=== PATIENT | male | born 1975 | race Caucasian/White ===

== ENCOUNTER 2016-09-19 03:51 | Inpatient (IN) | payer MEDICARE ==
[~2016-09-19] VITALS: Ht 180.3 cm; Wt 77.7 kg
[~2016-09-19 03:51] MED LIST: CYMBALTA60 MG PO; LYRICA150 MG PO; PRADAXA150 MG PO; STIOLOTO RESPIMAT INH
[2016-09-19 04:26] LABS: BASOPHILS 0.5 % (0.0-2.0); HEMATOCRIT 45.7 % (42.0-54.0); HEMOGLOBIN 15.5 g/dL (13.5-17.5); IMMATURE GRANULOCYTES 0.2 % (0-5); LYMPHOCYTES 34.7 % (15-50); MCH 31.7 pg (26.0-34.0); MCHC 33.9 g/dL (31.0-37.0); MCV 93.5 fL (80.0-100.0); MONOCYTES 7.3 % (2-11); NEUTROPHILS 54.3 % (40-80); PLATELET COUNT 182 10x3/uL (130-400); RBC 4.89 10x6/uL (4.20-6.10); RDW 13.7 % (11.5-14.5)
[2016-09-19 04:36] LABS: ALBUMIN 4.4 g/dL (3.4-5.0); ALKALINE PHOSPHATASE 55 U/L (46-116); ALT (SGPT) 27 U/L (10-68); BILIRUBIN - TOTAL 0.36 mg/dL (0.2-1.3); CALC OSMOLALITY 280 mosm/kg (275-300); CALCIUM 8.9 mg/dL (8.5-10.1); CARBON DIOXIDE 28.1 mmol/L (21.0-32.0); CHLORIDE - SERUM 105 mmol/L (98-107); CREATININE - SERUM 0.9 mg/dL (0.6-1.3); GLUCOSE 114 mg/dL (74-106); POTASSIUM - SERUM 3.6 mmol/L (3.5-5.1); PROTEIN - SERUM 7.4 g/dL (6.4-8.2); SODIUM 141 mmol/L (136-145); UREA NITROGEN 10 mg/dL (7-18); eGFR NON AFRICAN AMERICAN > 90 mL/min (90-120)
[2016-09-19 04:45] LABS: CKMB 0.3 U/L (0.0-3.6); CREATINE KINASE 77 UL (21-232)
[2016-09-19 04:47] LABS: TROPONIN-I < 0.017 ng/mL (0.000-0.060)
--- NOTE | 2016-09-19 11:30 | NUR ---
PT REC'D ON FLOOR FROM ER. PT IS ALERT AND ORIENTED. WILL BEGIN ADMISSION WORK-UP AND START WITH ORDERS.
[2016-09-19] MEDS ORDERED: ELIQUIS5 MG PO (11:33)
[2016-09-19 11:35] VITALS: BP 124/78; Ht 180.3 cm; Wt 77.7 kg
[2016-09-19 11:43] VITALS: BP 124/78
--- NOTE | 2016-09-19 13:19 | NUR ---
PT TALKING WITH AND TRISTA HADLEY APN AT BEDSIDE. NO CURRENT NEEDS.
[2016-09-19 14:48] VITALS: BP 105/68
--- NOTE | 2016-09-19 17:53 | NUR ---
REPORT GIVEN TO WOMENS NURSE STACIE. PT VERBALIZED UNDERSTANDING OF TRANSFER. PRN PAIN MEDICATION GIVEN. TELEMETRY APPLIED. NO FURTHER NEEDS NOTED AT THIS TIME. WILL TRANSFER PT AT THIS TIME.
--- NOTE | 2016-09-19 18:17 | NUR ---
MEENU RECEIVED TO ROOM 1218. HE IS AWAKE AND ALERT, ABLE TO MAKE HIS NEEDS KNOWS. FEMALE VISITOR AT THE BEDSIDE. CALL LIGHT IS WITHIN REACH. SL IS WITHOUT REDNESS OR SIGNS OF INFILTRATION. TELEMETRY IS RECORDING.
[2016-09-19 19:30] VITALS: BP 110/68
--- NOTE | 2016-09-19 19:40 | NUR ---
ASSESSMENT PER FLOW SHEET, VS OBTAINED PER KENDY SCHULZ RN, SALINE LOCK IN LEFT AC INTACT WITH NO REDNESS OR EDEMA, PT REPORTS FLATUS, 2 BM'S TODAY, AND VOIDING BY SELF WITH NO DIFFCULTY, PT RATES PAIN 5/10, INFORMED PT PAIN MED NOT DUE AT THIS TIME, TALKED TO PT ABOUT FALL RISK, PT REFUSES BED ALARM, EXPLAINED TO PT WHY IT WAS USED, CONTINUES TO REFUSE BED ALARM, REQUESTS TO SIGN WAIVER, PT INST ON NPO AFTER MIDNIGHT, VERBALIZES UNDERSTANDING, PT DENIES NEEDS AT THIS TIME
--- NOTE | 2016-09-19 20:05 | NUR ---
PT WATCHING TV, YELLOW BAND PLACED ON ARM, YELLOW STAR TO DOOR, BLUE SKID SOCKS PROVIDED, PT SIGNS BED ALARM WAIVER, PT DENIES NEEDS AT THIS TIME
--- NOTE | 2016-09-19 21:28 | NUR ---
PT TALKING ON CELL PHONE, ADM 2100 MEDS AND PAIN MED PO PER MD ORDERS WITH FRESH H20, SEE EMAR, PT DENIES FURTHER NEEDS
--- NOTE | 2016-09-19 22:34 | NUR ---
PT RESTING IN BED, GETTING READY TO TRY AND SLEEP, DENIES NEEDS AT THIS TIME
--- NOTE | 2016-09-19 23:25 | NUR ---
HEALTH INFORMATION ADMINISTRATOR NOTIFIED OF NEW ORDER FOR MAXIPIME
[2016-09-20] VITALS (10 sets, daily range): BP systolic 87–112; BP diastolic 45–69
--- NOTE | 2016-09-20 00:30 | NUR ---
PT AWAKE, AROUSES TO OPENING OF DOOR, VS OBTAINED, REQUESTS PAIN MED, INFORMED PT THAT IT WAS NOT TIME FOR IT, PT VERBALIZES UNDERSTANDING, DENIES FURTHER NEEDS AT THIS TIME
--- NOTE | 2016-09-20 02:00 | NUR ---
PT AWAKE, PT REQUESTS PAIN MED, EXPLAINED TO PT THAT IT WAS NOT DUE YET AND THAT I HAD ADM IT TOO SOON, PAIN MED IS Q6H PRN, PT VERY ADAMENT ABOUT WANTING ME TO CONTACT THE DOCTOR, INFORMED PT THAT I WILL PASS ON TO DAY SHIFT ABOUT TALKING TO THE DOCTOR, PT STATES "OH, DON'T WORRY, I'LL GET IT CHANGED, I KNOW THERE IS A DOCTOR ON STAFF HERE, I SPENT [address] [facility], AND THEY WOULD JUST CALL DOWN THERE TO THEM", EXPLAINED TO PT THAT IT ISN'T LIKE THAT HERE, THAT I HAVE TO CONTACT THE DOCTOR SPEECH CLINICIAN AND THAT I WAS GIVEN REPORT THAT THE MED IS TO STAY THE SAME, PT PROCEEDED TO GELL ME TO CONTACT THE ER DOCTOR, I INFORMED HIM THAT IS NOT WHO I AM TO CONTACT, INFORMED PT THAT I WILL ADM THE PAIN MED WHEN DUE, PT VERBALIZES UNDESTANDING
--- NOTE | 2016-09-20 02:11 | NUR ---
PT AMB TO DRIVER ENGINEER, WANTS TO SEE HIS CHART, SALLIE BERNAL RN AT DRIVER ENGINEER ALSO, THIS RN AND SALLIE BERNAL RN BOTH INFORMED PT THAT THE PAIN MED WAS EVERY 6 HOURS, HE PROCEEDED TO SAY THAT THE DOCTOR AND THE OTHER NURSE TOLD HIM HE COULD HAVE IT EVERY 4 HOURS, PT SHOWN WHEN AND WHO WROTE THE MED ORDER, PT STATES "WELL, I JUST DON'T FEEL GOOD", PT BACK TO ROOM
--- NOTE | 2016-09-20 02:37 | NUR ---
PT REPORTS TO RN THAT HE HAS LYRICA THAT HE TAKES AT HOME. EXPRESSES FRUSTRATION THAT HE CAN'T GET NORCO AT THIS TIME, STATING HE WAS TOLD BY HIS MD THAT HE COULD GET IT Q 4 HRS PRN. ORDER DISCUSSED WITH PT, CONT TO EXPRESS FRUSTRATION AND BEGAN CURSING AND STATING THAT THE STAFF HAD TREATED HIM BADLY SINCE HE HAD BEEN HERE AND HAD BEEN DENIED PAIN MEDICATION. RN DISCUSSED GIVING 0900 LYRICA AND THAT NORCO COULD BE GIVEN 30 MINUTES EARLY BUT NO MORE. VERBALIZED UNDERSTANDING. RN OFFERED FOR HS TO COME SPEAK WITH HIM, PT DENIED NEED FOR HS TO COME AT THIS TIME. RATES PAIN 9/10 AT THIS. PT AGREED TO TAKE 0900 LYRICA AT THIS TIME.
--- NOTE | 2016-09-20 02:58 | NUR ---
ADM NORCO PO PER MD ORDERS, SEE EMAR, WITH A SMALL SIP OF H20, SALLIE BERNAL RN IN ROOM AT THIS TIME
--- NOTE | 2016-09-20 04:00 | NUR ---
PT AWAKE, ANTIBIOTIC AND FLUSH FINISHED INFUSING, IV CONVERTED TO SALINE LOCK, PT REPORTS PAIN IS BETTER, RATES 5/10, STATES "I'M SORRY FOR ACTING THE WAY I DID", PT THANKS ME FOR TAKING GOOD CARE OF HIM, PT DENIES FURTHER NEEDS AT THIS TIME
--- NOTE | 2016-09-20 06:20 | NUR ---
PT AWAKE, ADM PROTONIX PO PER MD ORDERS WITH SMALL SIP OF H20, PT DENIES NEEDS AT THIS TIME
[2016-09-20 06:24] LABS: BASOPHILS 0.5 % (0.0-2.0); EOSINOPHILS 3.4 % (0-7); HEMATOCRIT 41.2 % (42.0-54.0); HEMOGLOBIN 13.6 g/dL (13.5-17.5); IMMATURE GRANULOCYTES 0.2 % (0-5); MCH 30.6 pg (26.0-34.0); MCV 92.8 fL (80.0-100.0); MEAN PLATELET VOLUME 9.2 fL (7.4-10.4); NEUTROPHILS 55.9 % (40-80); PLATELET COUNT 159 10x3/uL (130-400); RBC 4.44 10x6/uL (4.20-6.10); RDW 13.5 % (11.5-14.5); WBC 6.1 10x3/uL (4.8-10.8)
[2016-09-20 06:57] LABS: ALBUMIN 3.5 g/dL (3.4-5.0); ALKALINE PHOSPHATASE 45 U/L (46-116); ALT (SGPT) 25 U/L (10-68); CALC OSMOLALITY 276 mosm/kg (275-300); CALCIUM 8.4 mg/dL (8.5-10.1); CARBON DIOXIDE 24.2 mmol/L (21.0-32.0); CHLORIDE - SERUM 107 mmol/L (98-107); CREATININE - SERUM 0.8 mg/dL (0.6-1.3); GLUCOSE 96 mg/dL (74-106); POTASSIUM - SERUM 3.9 mmol/L (3.5-5.1); PROTEIN - SERUM 5.9 g/dL (6.4-8.2); SODIUM 140 mmol/L (136-145); eGFR NON AFRICAN AMERICAN > 90 mL/min (90-120)
[2016-09-20 06:58] LABS: UREA NITROGEN 7 mg/dL (7-18)
[2016-09-20 07:00] LABS: APTT 30.1 SECONDS (22.8-39.4); INR 1.03 (0.85-1.17); PROTIME 13.3 SECONDS (11.6-15.0)
--- NOTE | 2016-09-20 07:00 | NUR ---
SHIFT REPORT TO DAY SHIFT
--- NOTE | 2016-09-20 07:30 | NUR ---
PT WAS RECEIVED THIS AM LYING IN BED. HE OFFERS NO COMPLAINTS. HE STATES THAT HE IS GOING FOR A BRONCHOSCOPY TODAY. HE STATES THAT HE IS NOT HAVING ANY PAIN AT THIS TIME. BED IS LOW, SIDE RAILS UP X 2 AND CALLL LIGHT IN REACH. GEN- AWAKE AND ALERT. LUNGS- CLEAR. HEART- RRR. ABD-SOFT, NONTENDER. EXT- NO EDEMA. SALINE LOCK NOTED R AC WHICH IS PATENT. VSS. HE RECEIVES UPDRAFTS.
--- NOTE | 2016-09-20 08:50 | NUR ---
PT IS RESTING IN BED. RESPIRATORY THERAPY IS HERE TO GIVE HIS UPDRAFTS.
--- NOTE | 2016-09-20 09:20 | NUR ---
PT REQUEST TO HAVE A PAIN PILL. STATES HIS PAIN IS A 7 AND IS IN CHEST. NORCO 5/325 GIVEN.
--- NOTE | 2016-09-20 10:46 | NUR ---
PT'S PREOP MEDS GIVEN. MORPHINE 4MG IV AND PHENERGAN 12.5 MG IV GIVEN. FLUSHED WITH NS. PT TRANSPORTED TO HAVE BRONCHOSCOPY
--- NOTE | 2016-09-20 12:00 | NUR ---
PT WAS RECEIVED FROM HAVING BRONCHOSCOPY DONE. THEY HAD TO ABORT THE PROCEDURE DUE TO PATIENT GETTING UPSET AND COMBATIVE. PT IS SLEEPING BUT EASILY AROUSED.
--- NOTE | 2016-09-20 13:28 | NUR ---
Is the patient Alert and Oriented? Yes 0 * How many steps to enter\exit or inside your home? 3 0 * PCP SERGEY MARIE 0 * [facility] [address] [facility] * Preadmission Environment Home with Family 0 * ADLs Independent 0 * Equipment None 0 * List name and contact numbers for known caregivers / representatives who currently or will assist patient after discharge: MOTHER: CECELIA [phone] 0 * Community resources currently utilized None 0 * Additional services required to return to the preadmission environment? No 0 * Can the patient safely return to the preadmission environment? Yes 0 * Has this patient been hospitalized within the prior 30 days at any hospital? No PATIENT IS AWAKE AND ALERT. HE STATES HIS MOTHER, CECELIA, LIVES WITH HIM. HE STATES SHE WILL BE AVAILABLE TO DRIVE HIM HOME AT DISCHARGE. PATIENT STATES HIS PCP IS SERGEY MARIE. PATIENT GETS HIS MEDS FROM [facility] ON . HE DENIES USE OF ANY EQUIPMENT. HE DENIES EVER HAVING HOME HEALTH. PATIENT STATES THERE ARE 3 STEPS TO ENTER HIS HOME. NO DISCHARGE NEEDS AT THIS TIME.
--- NOTE | 2016-09-20 13:53 | NUR ---
PT REQUEST SOMETHING TO EAT. I TOLD HIM HE COULD HAVE CLEAR LIQUIDS. GAVE HIM SOME JELLO. HE STATES THAT HE ATE A COUPLE OF SHRIMP BEFORE KNOWING.
--- NOTE | 2016-09-20 16:38 | NUR ---
PT IS BACK TO ROOM FROM WALKING. OFFERS NO COMPLAINTS. WALKED WITH HIS MOTHER.
--- NOTE | 2016-09-20 18:00 | NUR ---
PT'S MAXIPIME WAS HUNG WITH NS. PT IS SITTING UP IN BE. PAIN IS NOW ABOUT A 4/10. HE IS EATING HIS DINNER. HIS BED IS LOW, SIDE RAILS UP X 2 AND CALL LIGHT IN REACH. SALINE LOCK LEFT AC IS D'CD. TIP INTACT. IV LEFT HAND IS PATENT.
--- NOTE | 2016-09-20 18:11 | NUR ---
PT IS UP TO BATHROOM. SHE VOIDED. SHE AMBULATED WITHOUT DIFFICULTY. PT DOES NOT SEEM TO WANT TO EAT HER DINNER. OFFERED HER SOMETHING ELSE. SHE DOES NOT WANT. BED IS LOW. SIDE RAILS UP X 2 AND CALL LIGHT IN REACH.
--- NOTE | 2016-09-20 19:20 | NUR ---
AWAKE DURING INITIAL ROUNDS SITTING ON SIDE OF THE BED. INTRODUCED SELF. V/S TAKEN. ASSESSMENT DONE. STATUS Dx: SYNCOPE. SALINE LOCK TO R HAND FOR IV ANTIBIOTIC. ON TELEMETRY--SINUS RICHARD.
--- NOTE | 2016-09-20 19:30 | NUR ---
SANDWICH BOX PROVIDED. STATES HE DID NOT GET A SUPPER TRAY.
--- NOTE | 2016-09-20 19:40 | NUR ---
AMBULATING IN THE BREWER. OFF THE UNIT.
--- NOTE | 2016-09-20 19:59 | NUR ---
BACK IN THE ROOM WITH FEMALE FRIEND.
--- NOTE | 2016-09-20 20:36 | NUR ---
RT HERE TO GIVE BREATHING TREATMENT.
--- NOTE | 2016-09-20 20:50 | NUR ---
HS MEDS GIVEN. PAIN LEVEL 7/10 FROM HEAD/NECK/LEGS. NORCO 5/325 1tab PO GIVEN FOR PAIN CONTROL. SEE E-MAR.
[2016-09-21 00:34] VITALS: BP 99/62
--- NOTE | 2016-09-21 00:34 | NUR ---
V/S RECHECKED. PULSE 52/min.
--- NOTE | 2016-09-21 01:10 | NUR ---
PAIN LEVEL "7"/10. NORCO 5/325 1tab PO GIVEN FOR PAIN MANAGEMENT. CEFEPIME 1GM IVPB ANTIBIOTIC INFUSING. SEE E-MAR. NO ADVERSE REACTION NOTED.
--- NOTE | 2016-09-21 01:45 | NUR ---
ANTIBIOTIC INFUSION COMPLETE. PIV SL AT THIS TIME. PT DENIES PAIN OR FURTHER NEEDS.
--- NOTE | 2016-09-21 03:20 | NUR ---
EYES CLOSED. LEFT UNDISTURBED.
--- NOTE | 2016-09-21 04:50 | NUR ---
EMPLOYMENT AND CLAIMS AIDE HERE TO DRAW AM LAB.
--- NOTE | 2016-09-21 05:45 | NUR ---
V/S SATBLE. PAIN LEVEL "6"/10 (HEAD/NECK/LEGS) NORCO 5/325 1tab PO GIVEN FOR PAIN CONTROL. SLEPT FAIRLY WELL DURING THE NIGHT. CONTINUING PLAN OF CARE.
[2016-09-21 05:48] VITALS: BP 103/72
[2016-09-21 06:12] LABS: BASOPHILS 0.6 % (0.0-2.0); EOSINOPHILS 2.9 % (0-7); HEMATOCRIT 40.2 % (42.0-54.0); HEMOGLOBIN 13.3 g/dL (13.5-17.5); IMMATURE GRANULOCYTES 0.2 % (0-5); MCH 30.9 pg (26.0-34.0); MCHC 33.1 g/dL (31.0-37.0); MCV 93.5 fL (80.0-100.0); MEAN PLATELET VOLUME 9.4 fL (7.4-10.4); NEUTROPHILS 56.3 % (40-80); PLATELET COUNT 179 10x3/uL (130-400); RDW 13.7 % (11.5-14.5); WBC 6.6 10x3/uL (4.8-10.8)
--- NOTE | 2016-09-21 07:30 | NUR ---
MEENU IS AWAKE AND ALERT. SITTING UPRIGHT IN BED. UNPRODUCTIVE COUGH NOTED. NO NEEDS VOICED. MONITORING.
[2016-09-21 07:45] VITALS: BP 113/71
[2016-09-21 08:00] VITALS: BP 113/71
--- NOTE | 2016-09-21 08:40 | NUR ---
MEENU HAS TAKEN HIS MORNING MEDICATIONS. DISCUSSED THE TIME SPAN FOR NORCO AVAILABILITY AT [facility]. HE STATES UNDERSTANDING OF A MISUNDERSTANDING AND PLANS TO CLARIFY THIS WITH DR. BLUE WHEN HE SEES HIM TODAY. HES LUNGS ARE CLEAR AND HE IS WITHOUT A MURMUR. TELEMETRY CONFIRMS A SR 87. FRESH CUP OF COFFEE PROVIDED. HE IS UNCLEAR OF THE PLAN FOR THE DAY. DISCUSSED ANTIBIOTICA AND AWAIT CLARIFICATION FROM .
--- NOTE | 2016-09-21 08:40 | NUR ---
AM rounds, pt again asking about pain medication and wanting it every 4 hours instead of 6 hours. Explained to pt yesterday and again today that it was initially ordered every 6 hours. Pt is again verbalizing that someone changed it. I asked pt if he needed pain medication every 4 hours and he stated yes. Sukumar and Bertha explained we could speak to the MD on rounds.
--- NOTE | 2016-09-21 08:41 | CN ---
PATIENT NAME:CHIKI MARTINI MEDICAL RECORD: [id number] : 75 LOCATION:[facility] D.1218 ADMIT DATE: 09/20/16 ACCOUNT: [id number] CONSULTING PHYSICIAN: SATHYA ORTIZ MD REFERRING PHYSICIAN: CODI NIETO MD DATE OF CONSULTATION: 09/19/2016 DIAGNOSES: 1. Recurrent pulmonary emboli. 2. Eliquis anticoagulation. 3. Syncope. HISTORY OF PRESENT ILLNESS: This is a gentleman, who has had 16 pulmonary emboli. He is followed by Dr. Fay, pulmonary here. He is followed by Dr. Blanco, cardiology in ____. He saw Dr. King yesterday, had an echocardiogram and Dr. Blanco said that his pressures in his lung were high. He called Dr. Fay. He was set to see Dr. Fay. He went home, had recurrent chest pain and had an episode of syncope. He is on telemetry here, he has not had any dysrhythmia. He has had a history of dysrhythmia. He is on no AV-blocking medication at this time. He is to see a doctor in [place], [place]. 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 PHYSICAL EXAMINATION: GENERAL APPEARANCE: Well-nourished, well-developed, appears stated age. Level of distress, comfortable. PSYCHIATRIC: Mental status, alert, normal affect. Orientation, oriented to time, place and person. EYES: Lids and conjunctiva, noninjected. No discharge, no pallor. ENT: Lips, teeth, gums, normal dentition. Oropharynx, no cyanosis, no pallor. NECK: Carotid arteries, bilateral normal upstroke, no bruits, no thrills. JUGULAR VEINS: No jugular venous pressure or distention. CERVICAL LYMPH NODES: Nontender, nonenlarged. THYROID: Not enlarged. Nontender. No nodules. LUNGS: Respiratory effort, unlabored. CHEST: Normal curvature. No thoracic deformity. No chest wall tenderness. Percussion, resonant. Auscultation, clear. No wheezes, no rales, no rhonchi. CARDIOVASCULAR: Precordial exam, nondisplaced. No heaves or pericardial thrills. Rate and rhythm, regular. Heart sounds, normal S1, normal S2. No S3, no gallop, no rub. Systolic murmur, not heard. Diastolic murmur, not heard. EXTREMITIES: No cyanosis, no edema. Peripheral pulses, full and equal in all extremities, except as noted. No bruits appreciated. ABDOMEN: Soft, nondistended. Normal aorta. No bruit. Nontender. No masses. Liver, nontender, no hepatomegaly. Spleen, nontender, no splenomegaly. MUSCULOSKELETAL: No joint tenderness. No joint swelling. No erythema. NEUROLOGICAL: Normal gait, normal strength, normal tone. SKIN: Warm and dry. EXTREMITIES: No cyanosis, no edema. Peripheral pulses, full and equal in all extremities time. sneezing. REVIEW OF SYSTEMS: The patient reports easy bruising but reports no swollen glands. The patient reports no fever, no night sweats, no significant weight gain, no significant weight loss. No significant exercise tolerance. The patient reports no dry eyes, no irritation, no vision change. Patient reports CONSULT REPORT [id number] CHIKI MARTINI no difficulty hearing and no ear pain. Patient reports no frequent nose bleeds or nose and sinus problems. Patient reports on arm pain on exertion. No shortness of breath while lying down. No history of heart murmur. Patient reports no cough, no wheezing or coughing up blood. Patient reports no abdominal pain, no vomiting. Normal appetite. No diarrhea and not vomiting blood. No nausea and no constipation. Patient reports no incontinence. No difficulty urinating. No hematuria. No increased frequency. Patient reports no muscle aches. No weakness, no arthralgias, no back pain. No swelling of the extremities. Patient reports no abnormal mole, no jaundice, no rashes. Reports no loss of consciousness. No weakness and no numbness. No seizures, dizziness, or headaches. The patient reports no depression, no sleep disturbance, feeling safe in a relationship and no alcohol abuse. Patient reports on fatigue. Reports no runny nose or sinus pressure. No itching, no hives, and no frequent sneezing. OVERALL IMPRESSION: Palpitations. We will continue to monitor on telemetry, see if he has any dysrhythmia, treat dysrhythmias accordingly; however, at this time, I think the chest pain he has may be recurrent pulmonary emboli. Again, D-dimer is elevated. His troponin is normal. Most likely he does have some degree of pulmonary hypertension from the recurrent pulmonary emboli. At this time, no other discrete cardiac workup and treatment is necessary. TRANSINT:[id number] Voice Confirmation ID: [id number] DOCUMENT ID: [id number] SATHYA ORTIZ MD at 0841 CC: [id number] DICTATION DATE: 09/19/16 1313 CERTIFIED NURSING ATTENDANT: 09/19/16 1924 ADM IN [place] [id number] [place] [address]
--- NOTE | 2016-09-21 09:12 | NUR ---
PRODUCTIVE COUGH NOTED.
--- NOTE | 2016-09-21 09:58 | NUR ---
PATIENT GIVEN A CUP AND INSTRUCTIONS TO COLLECT ANY PRODUCTION THAT HE HAS WITH COUGH FOR OBSERVATION. HE VOICES UNDERSTANDING.
--- NOTE | 2016-09-21 10:43 | NUR ---
PATIENT SITTING UP ON THE BEDSIDE READING HIS NEWSPAPER.
--- NOTE | 2016-09-21 11:56 | NUR ---
MEENU GIVEN NORCO FOR C/O GENERALIZED PAIN, ACHING IN HIS KNEES, BACK, HIPS, HEAD AND NECK. HE TELLS ME THAT HE HAS BEEN PRETTY ROUGH ON HIS BODY, "BEEN NEAT UP ALL MY LIFE." HE TELLS ME OF 2 HERNIA SURGERIES AND A HIP REPLACEMENT. IV ABT BEGUN TO THE LEFT HAND IV INSERTION SITE THAT IS WITHOUT REDNESS OR SWELLING. LUNCH SERVED I WAS IN THERE. NO NEEDS NOTED.
--- NOTE | 2016-09-21 14:22 | NUR ---
PATIENT UP IN TO THE SHOWER. LINENS CHANGED. IV TO NEHEMIAS LEFT HAND COVERED.
[2016-09-21] MEDS ORDERED: ELIQUIS2.5 MG PO (15:57)
--- NOTE | 2016-09-21 17:10 | NUR ---
MEENU UNDERSTANDS THAT HE HAS BEEN RELEASED TO GO HOME. DISCUSSED HIS ELEQUIS DOSING. HE UNDERSTANDS THAT HE IS TO TAKE 2.5MG TWICE DAILY. CALLED TO PHARMACY ([facility]) WHO CONFIRMED THAT HE CAN CUT HIS 5MG TABS IN 1. HE VOICED UNDERSTANDING. I ENCOURAGED HIM TO GET A SECOND OPINION FROM HIS PHARMACIST IF HE STILL HAD RESERVATIONS. HIS MOTHER HAS GONE HOME AND IS HIS TRANSPORTAION. SHE WILL RETURN FOR HIM. HE REQUESTS A PAIN PILL [PRIOR TO LEAVING.
[2016-09-21] MEDS ORDERED: OMNICEF300 MG PO (17:39)
--- NOTE | 2016-09-21 19:04 | NUR ---
DISCHARGE INSTRUCTIONS DISCUSSED, INCLUDING NEED FOR MAKING A FOLLOW UP APPT.
--- NOTE | 2016-09-21 19:05 | NUR ---
WHEELED OUT TO WAITING VEHICLE.
== END 2016-09-21 19:05 | disposition home or self-care (01) | DRG 204 ==
LOC: D.ER 03:51 → D.M2 10:26 → OBSVTIME 10:26 → D.M2 10:26 → D.WS 10:26
PROVIDERS: Family Medicine; Internal Medicine Pulmonary Disease; ADMIT Family Medicine
PROC: 0BJ08ZZ Inspection of Tracheobronchial Tree, Via Natural or Artificial Opening Endoscopic (ICD-10-PCS; principal; 2016-09-20 10:54)
DX: R04.2 Hemoptysis (principal); R07.9 Chest pain, unspecified; R55 Syncope and collapse; Z79.01 Long term (current) use of anticoagulants; M79.7 Fibromyalgia; J44.9 Chronic obstructive pulmonary disease, unspecified; E78.5 Hyperlipidemia, unspecified; K21.9 Gastro-esophageal reflux disease without esophagitis; J31.0 Chronic rhinitis; M19.90 Unspecified osteoarthritis, unspecified site; Z86.711 Personal history of pulmonary embolism; Z86.718 Personal history of other venous thrombosis and embolism; Z87.891 Personal history of nicotine dependence

== ENCOUNTER 2017-01-20 20:33 | Emergency (ER) | payer MEDICARE ==
[2016-09-19 11:35] VITALS: BMI 23.9
[~2017-01-20 20:33] MED LIST changes: +ELIQUIS2.5 MG PO; +ELIQUIS5 MG PO; +OMNICEF300 MG PO
[2017-01-20 21:05] LABS: BASOPHILS 0.6 % (0-2); EOSINOPHILS 2.1 % (0-7); HEMOGLOBIN 14.8 g/dL (13.5-17.5); IMMATURE GRANULOCYTES 0.1 % (0-5); LYMPHOCYTES 26.1 % (15-50); MCH 31.8 pg (26.0-34.0); MCHC 34.4 g/dL (31.0-37.0); MCV 92.3 fL (80.0-100.0); MEAN PLATELET VOLUME 9.2 fL (7.4-10.4); MONOCYTES 4.4 % (2-11); NEUTROPHILS 66.7 % (40-80); PLATELET COUNT 200 10x3/uL (130-400); RBC 4.66 10x6/uL (4.20-6.10); RDW 13.2 % (11.5-14.5); WBC 9.1 10x3/uL (4.8-10.8)
[2017-01-20 21:15] LABS: APTT 32.8 SECONDS (22.8-39.4); INR 0.93 (0.85-1.17); PROTIME 12.3 SECONDS (11.6-15.0)
[2017-01-20 21:16] LABS: D-DIMER-QUANTITATIVE 0.59 ug/mLFEU (0.20-0.54)
[2017-01-20 21:20] LABS: ALBUMIN 4.2 g/dL (3.4-5.0); ALKALINE PHOSPHATASE 57 U/L (46-116); ALT (SGPT) 17 U/L (10-68); BILIRUBIN - TOTAL 0.38 mg/dL (0.2-1.3); CALC OSMOLALITY 277 mosm/kg (275-300); CARBON DIOXIDE 29.6 mmol/L (21.0-32.0); CHLORIDE - SERUM 102 mmol/L (98-107); CREATININE - SERUM 0.9 mg/dL (0.6-1.3); GLUCOSE 80 mg/dL (74-106); POTASSIUM - SERUM 3.9 mmol/L (3.5-5.1); PROTEIN - SERUM 7.4 g/dL (6.4-8.2); SODIUM 140 mmol/L (136-145); UREA NITROGEN 12 mg/dL (7-18); eGFR NON AFRICAN AMERICAN > 90 mL/min (90-120)
[2017-01-20 21:32] LABS: CHOLESTEROL, TOTAL 146 mg/dL (0-200); CKMB 0.4 U/L (0.0-3.6); CREATINE KINASE 109 UL (21-232); HDL CHOLESTEROL 29 mg/dL (32-96); LDL CHOLESTEROL 81 mg/dL (0-100); LDL-HDL RATIO 2.8 ratio (1.5-3.5); TRIGLYCERIDE 184 mg/dL (30-200); TROPONIN-I < 0.017 ng/mL (0.000-0.060)
== END 2017-01-20 23:45 | disposition home or self-care (01) ==
LOC: D.ER 20:33
PROVIDERS: Emergency Medicine
DX: R07.9 Chest pain, unspecified (principal); Z91.14 Patient's other noncompliance with medication regimen; R10.9 Unspecified abdominal pain; R11.0 Nausea; R06.00 Dyspnea, unspecified; R60.9 Edema, unspecified; R53.1 Weakness; F17.200 Nicotine dependence, unspecified, uncomplicated; F41.9 Anxiety disorder, unspecified

== ENCOUNTER → 2017-08-17 07:53 | Outpatient (CLI) | payer MEDICARE ==
[2016-09-19 11:35] VITALS: BMI 23.9
[~2017-08-17 07:53] MED LIST changes: +VENTOLIN HFA18 GM INH; +ZPAK PO
[2017-08-17 09:25] LABS: CREATININE - SERUM 0.8 mg/dL (0.6-1.3)
== END | disposition home or self-care (01) ==
LOC: D.RT 07:53
PROVIDERS: Internal Medicine Pulmonary Disease
DX: I26.99 Other pulmonary embolism without acute cor pulmonale (principal)

== ENCOUNTER 2017-08-19 19:03 | Inpatient (IN) | payer MEDICARE ==
[~2017-08-19] VITALS: Ht 180.3 cm; Wt 74.8 kg
[~2017-08-19 19:03] MED LIST changes: -VENTOLIN HFA18 GM INH; -ZPAK PO
[2017-08-19 19:29] LABS: BASOPHILS 0.4 % (0-2); EOSINOPHILS 1.8 % (0-7); HEMATOCRIT 41.1 % (42.0-54.0); IMMATURE GRANULOCYTES 0.2 % (0-5); LYMPHOCYTES 28.3 % (15-50); MCH 31.3 pg (26.0-34.0); MCHC 34.1 g/dL (31.0-37.0); MCV 91.7 fL (80.0-100.0); MEAN PLATELET VOLUME 8.8 fL (7.4-10.4); MONOCYTES 7.3 % (2-11); PLATELET COUNT 187 10x3/uL (130-400); RBC 4.48 10x6/uL (4.20-6.10); RDW 13.1 % (11.5-14.5); WBC 8.3 10x3/uL (4.8-10.8)
[2017-08-19 19:48] LABS: INR 0.96 (0.85-1.17); PROTIME 12.4 SECONDS (11.6-15.0)
[2017-08-19 19:49] LABS: ALBUMIN 3.9 g/dL (3.4-5.0); ALKALINE PHOSPHATASE 60 U/L (46-116); ALT (SGPT) 32 U/L (10-68); APTT 28.4 SECONDS (22.8-39.4); BILIRUBIN - TOTAL 0.39 mg/dL (0.2-1.3); CALC OSMOLALITY 277 mosm/kg (275-300); CALCIUM 9.2 mg/dL (8.5-10.1); CARBON DIOXIDE 26.2 mmol/L (21.0-32.0); CHLORIDE - SERUM 104 mmol/L (98-107); CREATININE - SERUM 0.9 mg/dL (0.6-1.3); GLUCOSE 110 mg/dL (74-106); POTASSIUM - SERUM 3.8 mmol/L (3.5-5.1); PROTEIN - SERUM 6.9 g/dL (6.4-8.2); SODIUM 139 mmol/L (136-145); UREA NITROGEN 11 mg/dL (7-18); eGFR NON AFRICAN AMERICAN > 90 mL/min (90-120)
[2017-08-19 19:50] LABS: D-DIMER-QUANTITATIVE < 0.27 ug/mLFEU (0.20-0.54)
[2017-08-19 20:00] LABS: CREATINE KINASE 316 UL (21-232)
[2017-08-19 20:05] LABS: TROPONIN-I < 0.017 ng/mL (0.000-0.060)
[2017-08-19] MEDS ORDERED: ELIQUIS5 MG PO (22:54)
[2017-08-19] MEDS ORDERED: VENTOLIN HFA18 GM INH (22:56)
[2017-08-19 23:48] VITALS: BP 92/65; BMI 23.0
[2017-08-20 00:40] VITALS: BP 92/43
[2017-08-20 04:57] LABS: BASOPHILS 0.1 % (0-2); EOSINOPHILS 0.1 % (0-7); HEMATOCRIT 42.1 % (42.0-54.0); HEMOGLOBIN 14.2 g/dL (13.5-17.5); IMMATURE GRANULOCYTES 0.2 % (0-5); LYMPHOCYTES 6.4 % (15-50); MCH 31.1 pg (26.0-34.0); MCHC 33.7 g/dL (31.0-37.0); MCV 92.1 fL (80.0-100.0); MEAN PLATELET VOLUME 9.3 fL (7.4-10.4); MONOCYTES 0.4 % (2-11); NEUTROPHILS 92.8 % (40-80); PLATELET COUNT 192 10x3/uL (130-400); RBC 4.57 10x6/uL (4.20-6.10); WBC 9.1 10x3/uL (4.8-10.8)
[2017-08-20 05:19] LABS: ALBUMIN 3.8 g/dL (3.4-5.0); ALKALINE PHOSPHATASE 56 U/L (46-116); ALT (SGPT) 29 U/L (10-68); BILIRUBIN - TOTAL 0.39 mg/dL (0.2-1.3); CALCIUM 8.8 mg/dL (8.5-10.1); CARBON DIOXIDE 24.8 mmol/L (21.0-32.0); CHLORIDE - SERUM 105 mmol/L (98-107); CREATININE - SERUM 0.8 mg/dL (0.6-1.3); PROTEIN - SERUM 6.9 g/dL (6.4-8.2); SODIUM 139 mmol/L (136-145); UREA NITROGEN 11 mg/dL (7-18); eGFR NON AFRICAN AMERICAN > 90 mL/min (90-120)
[2017-08-20 05:21] LABS: CALC OSMOLALITY 280 mosm/kg (275-300); GLUCOSE 165 mg/dL (74-106); POTASSIUM - SERUM 4.6 mmol/L (3.5-5.1)
[2017-08-20 08:14] VITALS: BP 96/63
[2017-08-20 11:22] VITALS: BP 96/58
[2017-08-20 15:06] VITALS: Ht 180.3 cm; Wt 74.8 kg
[2017-08-20 20:00] VITALS: BP 97/66
[2017-08-21 04:00] VITALS: BP 93/60
[2017-08-21 05:26] LABS: BASOPHILS 0 % (0-2); EOSINOPHILS 0 % (0-7); HEMATOCRIT 39.9 % (42.0-54.0); HEMOGLOBIN 13.5 g/dL (13.5-17.5); IMMATURE GRANULOCYTES 0.4 % (0-5); LYMPHOCYTES 5.7 % (15-50); MCH 31.3 pg (26.0-34.0); MCHC 33.8 g/dL (31.0-37.0); MCV 92.4 fL (80.0-100.0); MEAN PLATELET VOLUME 9.4 fL (7.4-10.4); MONOCYTES 1.7 % (2-11); NEUTROPHILS 92.2 % (40-80); PLATELET COUNT 208 10x3/uL (130-400); RBC 4.32 10x6/uL (4.20-6.10); RDW 13.1 % (11.5-14.5)
[2017-08-21 05:31] LABS: WBC 12.4 10x3/uL (4.8-10.8)
[2017-08-21 05:44] LABS: CALC OSMOLALITY 282 mosm/kg (275-300); CALCIUM 8.3 mg/dL (8.5-10.1); CARBON DIOXIDE 23.8 mmol/L (21.0-32.0); CHLORIDE - SERUM 108 mmol/L (98-107); CREATININE - SERUM 0.7 mg/dL (0.6-1.3); GLUCOSE 155 mg/dL (74-106); POTASSIUM - SERUM 4.2 mmol/L (3.5-5.1); SODIUM 141 mmol/L (136-145); UREA NITROGEN 11 mg/dL (7-18); eGFR NON AFRICAN AMERICAN > 90 mL/min (90-120)
[2017-08-21 08:15] VITALS: BP 98/61
[2017-08-21 11:59] VITALS: BP 93/57
[2017-08-21] MEDS ORDERED: ZPAK PO (12:10)
== END 2017-08-21 14:38 | disposition home or self-care (01) | DRG 204 ==
LOC: D.ER 19:03 → D.MS 21:15 → D.EDHOLD 21:15 → D.MS 22:36
PROVIDERS: Family Medicine; Internal Medicine Nephrology
DX: R04.2 Hemoptysis (principal); J98.11 Atelectasis; T45.515A Adverse effect of anticoagulants, initial encounter; R07.9 Chest pain, unspecified; R91.8 Other nonspecific abnormal finding of lung field; J44.9 Chronic obstructive pulmonary disease, unspecified; Z86.718 Personal history of other venous thrombosis and embolism; Z79.01 Long term (current) use of anticoagulants; G62.9 Polyneuropathy, unspecified; J32.9 Chronic sinusitis, unspecified; K21.9 Gastro-esophageal reflux disease without esophagitis; F41.8 Other specified anxiety disorders; F43.10 Post-traumatic stress disorder, unspecified; E78.5 Hyperlipidemia, unspecified; M19.90 Unspecified osteoarthritis, unspecified site; F17.200 Nicotine dependence, unspecified, uncomplicated

== ENCOUNTER 2017-11-21 19:35 | Emergency (ER) | payer MEDICARE ==
[2017-08-20 15:06] VITALS: BMI 23.0
[~2017-11-21 19:35] MED LIST changes: +VENTOLIN HFA18 GM INH; +ZPAK PO
[2017-11-21 20:08] LABS: BASOPHILS 0.8 % (0-2); EOSINOPHILS 4.2 % (0-7); HEMATOCRIT 41.1 % (42.0-54.0); HEMOGLOBIN 14.2 g/dL (13.5-17.5); IMMATURE GRANULOCYTES 0.2 % (0-5); LYMPHOCYTES 30.9 % (15-50); MCH 31.8 pg (26.0-34.0); MCHC 34.5 g/dL (31.0-37.0); MCV 91.9 fL (80.0-100.0); MEAN PLATELET VOLUME 8.6 fL (7.4-10.4); NEUTROPHILS 54.9 % (40-80); PLATELET COUNT 185 10x3/uL (130-400); RBC 4.47 10x6/uL (4.20-6.10); RDW 13.6 % (11.5-14.5); WBC 8.6 10x3/uL (4.8-10.8)
[2017-11-21 20:24] LABS: ALBUMIN 3.7 g/dL (3.4-5.0); ALKALINE PHOSPHATASE 61 U/L (46-116); ALT (SGPT) 26 U/L (10-68); CALC OSMOLALITY 274 mosm/kg (275-300); CALCIUM 8.8 mg/dL (8.5-10.1); CARBON DIOXIDE 25.2 mmol/L (21.0-32.0); CHLORIDE - SERUM 105 mmol/L (98-107); CREATININE - SERUM 0.9 mg/dL (0.6-1.3); GLUCOSE 101 mg/dL (74-106); POTASSIUM - SERUM 3.9 mmol/L (3.5-5.1); PROTEIN - SERUM 6.6 g/dL (6.4-8.2); SODIUM 138 mmol/L (136-145); UREA NITROGEN 11 mg/dL (7-18); eGFR NON AFRICAN AMERICAN > 90 mL/min (90-120)
[2017-11-21 20:54] LABS: APTT 30.6 SECONDS (22.8-39.4); INR 0.99 (0.85-1.17); PROTIME 12.7 SECONDS (11.6-15.0)
[2017-11-21 20:55] LABS: D-DIMER-QUANTITATIVE 0.38 ug/mLFEU (0.20-0.54)
[2017-11-21 21:15] LABS: LIPASE 110 U/L (73-393); PRO BNP 49 pg/mL (0-125); TROPONIN-I < 0.017 ng/mL (0.000-0.060)
== END 2017-11-21 23:47 | disposition home or self-care (01) ==
LOC: D.ER 19:35
PROVIDERS: Family Medicine
DX: M79.605 Pain in left leg (principal); Z86.718 Personal history of other venous thrombosis and embolism; Z79.01 Long term (current) use of anticoagulants

== ENCOUNTER 2018-06-28 13:21 | Emergency (ER) | payer MEDICARE ==
[~2018-06-28] VITALS: Ht 180.3 cm; Wt 75.0 kg
[2018-06-28 13:26] VITALS: Ht 180.3 cm; Wt 75.0 kg
[2018-06-28] MEDS ORDERED: NORCO 10-325 TA1 TAB PO (13:28)
[2018-06-28] MEDS ORDERED: CYMBALTA60 MG PO (13:28)
[2018-06-28 14:07] LABS: ALBUMIN 4.2 g/dL (3.4-5.0); ALKALINE PHOSPHATASE 69 U/L (46-116); ALT (SGPT) 28 U/L (10-68); BILIRUBIN - TOTAL 0.52 mg/dL (0.2-1.3); CALC OSMOLALITY 275 mosm/kg (275-300); CALCIUM 8.9 mg/dL (8.5-10.1); CARBON DIOXIDE 27.8 mmol/L (21.0-32.0); CHLORIDE - SERUM 101 mmol/L (98-107); CREATININE - SERUM 0.8 mg/dL (0.6-1.3); GLUCOSE 84 mg/dL (74-106); PROTEIN - SERUM 7.6 g/dL (6.4-8.2); SODIUM 140 mmol/L (136-145); UREA NITROGEN 7 mg/dL (7-18); eGFR NON AFRICAN AMERICAN > 90 mL/min (90-120)
[2018-06-28 14:10] LABS: APTT 32.1 SECONDS (22.8-39.4); INR 1.03 (0.85-1.17)
[2018-06-28 14:12] LABS: D-DIMER-QUANTITATIVE 0.35 ug/mLFEU (0.20-0.54)
[2018-06-28 14:18] LABS: CKMB 0.5 U/L (0.0-3.6); CREATINE KINASE 86 UL (21-232)
[2018-06-28 14:20] LABS: TROPONIN-I < 0.017 ng/mL (0.000-0.060)
[2018-06-28 14:29] LABS: BASOPHILS 0.4 % (0-2); EOSINOPHILS 2.5 % (0-7); HEMATOCRIT 46.4 % (42.0-54.0); HEMOGLOBIN 15.9 g/dL (13.5-17.5); IMMATURE GRANULOCYTES 0.2 % (0-5); LYMPHOCYTES 24.8 % (15-50); MCH 31.5 pg (26.0-34.0); MCHC 34.3 g/dL (31.0-37.0); MCV 91.9 fL (80.0-100.0); MEAN PLATELET VOLUME 9.2 fL (7.4-10.4); MONOCYTES 5.2 % (2-11); NEUTROPHILS 66.9 % (40-80); PLATELET COUNT 216 10x3/uL (130-400); RBC 5.05 10x6/uL (4.20-6.10); RDW 13.8 % (11.5-14.5); WBC 9.2 10x3/uL (4.8-10.8)
[2018-06-28] MEDS ORDERED: LEVAQUIN750 MG PO (14:40)
[2018-06-28 15:11] VITALS: BP 125/62
== END 2018-06-28 15:12 | disposition home or self-care (01) ==
LOC: D.ER 13:21
PROVIDERS: Family Medicine
DX: R04.2 Hemoptysis (principal); Z79.01 Long term (current) use of anticoagulants; Z95.828 Presence of other vascular implants and grafts; F17.200 Nicotine dependence, unspecified, uncomplicated; Z86.718 Personal history of other venous thrombosis and embolism; Z86.711 Personal history of pulmonary embolism

== ENCOUNTER → 2018-07-05 12:52 | Outpatient (CLI) | payer MEDICARE ==
[2018-06-28 13:26] VITALS: BMI 23.0
[~2018-07-05 12:52] MED LIST changes: +LEVAQUIN750 MG PO; +NORCO 10-325 TA1 TAB PO
[2018-07-05 14:24] LABS: CREATININE - SERUM 0.7 mg/dL (0.6-1.3)
[2018-07-07 10:07] LABS: IMMUNOGLOBULIN G 602 mg/dL (700-1600)
[2018-07-08 09:10] LABS: ANTI-GLOMERULAR BASMENT MEMBRN 3 units (0-20)
== END | disposition home or self-care (01) ==
LOC: D.LAB 12:52 → D.CT 14:30
PROVIDERS: Internal Medicine Pulmonary Disease
DX: R04.2 Hemoptysis (principal)

== ENCOUNTER 2018-07-18 18:04 | Emergency (ER) | payer MEDICARE ==
[~2018-07-18] VITALS: Ht 180.3 cm; Wt 77.3 kg
[2018-07-18 18:13] VITALS: Ht 180.3 cm; Wt 77.3 kg
[2018-07-18 18:52] LABS: BASOPHILS 0.6 % (0-2); EOSINOPHILS 2.8 % (0-7); HEMATOCRIT 45.8 % (42.0-54.0); HEMOGLOBIN 15.9 g/dL (13.5-17.5); IMMATURE GRANULOCYTES 0.3 % (0-5); LYMPHOCYTES 32.1 % (15-50); MCH 31.9 pg (26.0-34.0); MCHC 34.7 g/dL (31.0-37.0); MCV 91.8 fL (80.0-100.0); MEAN PLATELET VOLUME 8.9 fL (7.4-10.4); MONOCYTES 6.3 % (2-11); NEUTROPHILS 57.9 % (40-80); PLATELET COUNT 194 10x3/uL (130-400); RBC 4.99 10x6/uL (4.20-6.10); RDW 13.7 % (11.5-14.5); WBC 7.9 10x3/uL (4.8-10.8)
[2018-07-18 19:27] LABS: APTT 31.2 SECONDS (22.8-39.4); INR 1.01 (0.85-1.17); PROTIME 12.8 SECONDS (11.6-15.0)
[2018-07-18 19:34] LABS: ALBUMIN 4.1 g/dL (3.4-5.0); ALKALINE PHOSPHATASE 48 U/L (46-116); ALT (SGPT) 27 U/L (10-68); BILIRUBIN - TOTAL 0.44 mg/dL (0.2-1.3); CALC OSMOLALITY 280 mosm/kg (275-300); CALCIUM 8.8 mg/dL (8.5-10.1); CARBON DIOXIDE 26.9 mmol/L (21.0-32.0); CHLORIDE - SERUM 103 mmol/L (98-107); CREATININE - SERUM 0.8 mg/dL (0.6-1.3); GLUCOSE 84 mg/dL (74-106); PROTEIN - SERUM 6.9 g/dL (6.4-8.2); SODIUM 142 mmol/L (136-145); UREA NITROGEN 11 mg/dL (7-18); eGFR NON AFRICAN AMERICAN > 90 mL/min (90-120)
[2018-07-18 19:35] LABS: D-DIMER-QUANTITATIVE < 0.27 ug/mLFEU (0.20-0.54)
[2018-07-18 19:45] LABS: CKMB 0.9 U/L (0.0-3.6); CREATINE KINASE 119 UL (21-232); TROPONIN-I < 0.017 ng/mL (0.000-0.060)
[2018-07-18 22:07] VITALS: BP 111/83
== END 2018-07-18 22:07 | disposition home or self-care (01) ==
LOC: D.ER 18:04
PROVIDERS: Family Medicine
DX: Z86.711 Personal history of pulmonary embolism (principal); Z79.01 Long term (current) use of anticoagulants; R93.89 Abnormal findings on diagnostic imaging of other specified body structures; Z86.718 Personal history of other venous thrombosis and embolism; F17.200 Nicotine dependence, unspecified, uncomplicated

== ENCOUNTER 2018-08-09 06:36 | Outpatient (CLI) | payer MEDICARE ==
[~2018-08-09] VITALS: Ht 180.3 cm; Wt 75.0 kg
[2018-08-09 06:53] LABS: BASOPHILS 0.5 % (0-2); EOSINOPHILS 4.1 % (0-7); HEMATOCRIT 44.3 % (42.0-54.0); HEMOGLOBIN 15.3 g/dL (13.5-17.5); IMMATURE GRANULOCYTES 0.1 % (0-5); LYMPHOCYTES 25.2 % (15-50); MCH 31.4 pg (26.0-34.0); MCHC 34.5 g/dL (31.0-37.0); MEAN PLATELET VOLUME 8.6 fL (7.4-10.4); MONOCYTES 6.7 % (2-11); NEUTROPHILS 63.4 % (40-80); PLATELET COUNT 174 10x3/uL (130-400); RBC 4.87 10x6/uL (4.20-6.10); RDW 13.1 % (11.5-14.5); WBC 8.1 10x3/uL (4.8-10.8)
[2018-08-09 07:03] LABS: CALC OSMOLALITY 283 mosm/kg (275-300); CALCIUM 8.6 mg/dL (8.5-10.1); CARBON DIOXIDE 26.4 mmol/L (21.0-32.0); CHLORIDE - SERUM 106 mmol/L (98-107); CREATININE - SERUM 0.8 mg/dL (0.6-1.3); GLUCOSE 108 mg/dL (74-106); POTASSIUM - SERUM 4.2 mmol/L (3.5-5.1); SODIUM 142 mmol/L (136-145); UREA NITROGEN 13 mg/dL (7-18); eGFR NON AFRICAN AMERICAN > 90 mL/min (90-120)
[2018-08-09 07:06] LABS: INR 0.97 (0.85-1.17); PROTIME 12.4 SECONDS (11.6-15.0)
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
[2018-08-09 07:33] VITALS: BP 112/73; Ht 180.3 cm; Wt 75.0 kg
--- NOTE | 2018-08-09 08:15 | NUR ---
RUTH ANN FORBES RN WITH SPECIALS ATTEMPTED TO TALK WITH PATIENT AND HE TOLD HER TO GET OUT HE WAS GETTING ANGRY.
--- NOTE | 2018-08-09 08:35 | NUR ---
DR STOLL'S OFFICE CALLED AND SPOKE WITH HOSEA CLARK RN REGARDING PATIIENT'S REFUSAL FOR MODERATE SEDATION. RELATES DR STOLL IS OFF TODAY BUT SHE WOULD TRY TO FIND SOMETHING OUT AND CALL US BACK.
--- NOTE | 2018-08-09 08:45 | NUR ---
REC'D CALL FROM HOSEA CLARK RN RELATED TO MR LIANET. RELATED DR STOLL SAID WOULD HAVE TO RESCHEDULE IF HAS TO HAVE GENERAL. VIVI WITH CT HAD SPOKE TO ANESTHESIA AND THEY RELATED THEY COULD DO THE PROCEDURE TODAY. INFORMED ROBERT JC OF THIS AND SHE RELATED BY ALL MEANS DO THE PROCEDURE IF ANESTHESIA IA AVAILABLE.
--- NOTE | 2018-08-09 09:00 | NUR ---
NEW CONSENTS PUT ON CHART AND SIGNED BY PATIENT. PRE OP MEDS ADMINISTERED PER ORDERS.
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
--- NOTE | 2018-08-09 11:00 | NUR ---
IV DC'D WITH CATHETER INTACT. WRITTEN AND VERBAL DC INSTRUCTION TO FOLLOW UP WITH DR DODIE MCCORMICK GIVEN TO PATIENT ALONG WITH OFFICE PHONE NUMBER.
--- NOTE | 2018-08-09 11:10 | NUR ---
DC'D HOME WITH FAMILY VIA PRIVATE VEHICLE. AMBULATED TO VEHICLE DUE TO PATIENT NOT RECEIVING ANY TYPE OF SEDATIVE. STABLE AT TIME OF DC.
== END 2018-08-09 11:10 | disposition home or self-care (01) ==
LOC: D.SP 06:36 → D.CT 09:00 → D.SP 11:10
PROVIDERS: Specialist
DX: J43.9 Emphysema, unspecified (principal); Z53.8 Procedure and treatment not carried out for other reasons; Z01.812 Encounter for preprocedural laboratory examination

== ENCOUNTER 2019-05-24 10:08 | Emergency (ER) | payer MEDICARE ==
[~2019-05-24] VITALS: Ht 180.3 cm; Wt 84.1 kg
[2019-05-24 10:18] VITALS: Ht 180.3 cm; Wt 84.1 kg
[2019-05-24 10:58] LABS: BASOPHILS 0.4 % (0-2); EOSINOPHILS 1.9 % (0-7); HEMATOCRIT 44.4 % (42.0-54.0); HEMOGLOBIN 15.1 g/dL (13.5-17.5); IMMATURE GRANULOCYTES 0.2 % (0-5); LYMPHOCYTES 18.5 % (15-50); MCH 31.4 pg (26.0-34.0); MCV 92.3 fL (80.0-100.0); MEAN PLATELET VOLUME 8.5 fL (7.4-10.4); MONOCYTES 5.9 % (2-11); NEUTROPHILS 73.1 % (40-80); PLATELET COUNT 204 10x3/uL (130-400); RBC 4.81 10x6/uL (4.20-6.10); RDW 13.3 % (11.5-14.5); WBC 10.2 10x3/uL (4.8-10.8)
[2019-05-24 11:28] LABS: CALC OSMOLALITY 261 mosm/kg (275-300); CALCIUM 9.2 mg/dL (8.5-10.1); CARBON DIOXIDE 25.2 mmol/L (21.0-32.0); CHLORIDE - SERUM 97 mmol/L (98-107); CREATININE - SERUM 0.8 mg/dL (0.6-1.3); GLUCOSE 104 mg/dL (74-106); POTASSIUM - SERUM 4.1 mmol/L (3.5-5.1); SODIUM 131 mmol/L (136-145); UREA NITROGEN 9 mg/dL (7-18); eGFR NON AFRICAN AMERICAN > 90 mL/min (90-120)
[2019-05-24 11:30] LABS: ALKALINE PHOSPHATASE 64 U/L (46-116); ALT (SGPT) 35 U/L (10-68); BILIRUBIN - TOTAL 0.42 mg/dL (0.2-1.3)
[2019-05-24 11:31] LABS: CKMB 1.2 U/L (0.0-3.6); CREATINE KINASE 85 UL (21-232)
[2019-05-24 11:32] LABS: TROPONIN-I < 0.017 ng/mL (0.000-0.060)
[2019-05-24] MEDS ORDERED: CYCLOBENZAPRINE10 MG PO (13:38)
[2019-05-24 14:39] VITALS: BP 109/73
== END 2019-05-24 14:41 | disposition home or self-care (01) ==
LOC: D.ER 10:08
PROVIDERS: Family Medicine
DX: R25.2 Cramp and spasm (principal); R11.0 Nausea; E87.1 Hypo-osmolality and hyponatremia; I20.9 Angina pectoris, unspecified; Z72.0 Tobacco use

== ENCOUNTER 2019-06-21 13:34 | Inpatient (IN) | payer MEDICARE ==
[~2019-06-21] VITALS: Ht 180.3 cm; Wt 84.1 kg
[~2019-06-21 13:34] MED LIST changes: +CYCLOBENZAPRINE10 MG PO
[2019-06-21 14:13] VITALS: BP 116/86
[2019-06-21 14:13] LABS: BASOPHILS 0.4 % (0-2); EOSINOPHILS 2.2 % (0-7); HEMATOCRIT 45.5 % (42.0-54.0); HEMOGLOBIN 15.6 g/dL (13.5-17.5); IMMATURE GRANULOCYTES 0.2 % (0-5); MCH 31.6 pg (26.0-34.0); MCHC 34.3 g/dL (31.0-37.0); MCV 92.3 fL (80.0-100.0); MEAN PLATELET VOLUME 8.6 fL (7.4-10.4); MONOCYTES 5.1 % (2-11); NEUTROPHILS 67.1 % (40-80); PLATELET COUNT 209 10x3/uL (130-400); RBC 4.93 10x6/uL (4.20-6.10); RDW 13.8 % (11.5-14.5); WBC 10.2 10x3/uL (4.8-10.8)
[2019-06-21 14:26] LABS: APTT 38.3 SECONDS (22.8-39.4); INR 1.13 (0.85-1.17)
[2019-06-21 14:27] LABS: CALC OSMOLALITY 280 mosm/kg (275-300); CARBON DIOXIDE 25.8 mmol/L (21.0-32.0); CHLORIDE - SERUM 104 mmol/L (98-107); CREATININE - SERUM 0.8 mg/dL (0.6-1.3); D-DIMER-QUANTITATIVE < 0.27 ug/mLFEU (0.20-0.54); GLUCOSE 103 mg/dL (74-106); POTASSIUM - SERUM 3.9 mmol/L (3.5-5.1); SODIUM 142 mmol/L (136-145); UREA NITROGEN 6 mg/dL (7-18); eGFR NON AFRICAN AMERICAN > 90 mL/min (90-120)
[2019-06-21 14:43] LABS: ALBUMIN 4.1 g/dL (3.4-5.0); ALKALINE PHOSPHATASE 57 U/L (46-116); ALT (SGPT) 34 U/L (10-68); BILIRUBIN - TOTAL 0.47 mg/dL (0.2-1.3); CKMB 0.9 U/L (0.0-3.6); CREATINE KINASE 113 UL (21-232); PRO BNP 36 pg/mL (0-125); PROTEIN - SERUM 7.3 g/dL (6.4-8.2)
[2019-06-21 14:49] LABS: TROPONIN-I < 0.017 ng/mL (0.000-0.060)
[2019-06-21 15:00] VITALS: BP 106/80
[2019-06-21 16:49] VITALS: BP 122/89
[2019-06-21 18:06] VITALS: BP 127/86; Ht 180.3 cm; Wt 84.1 kg
--- NOTE | 2019-06-21 21:15 | NUR ---
ADDRESSED HOME MEDS WITH [facility]. HOME MEDS CONTINUED EXCEPT ELOQUIS. HOLDING ELOQUIS UNTIL PULMONOLOGY CONSULTED ABOUT HEMOPTYSIS. GAVE PERCOCET-10 FOR LEFT CHEST PAIN 01/01. NO OTHER NEEDS. WILL REASSESS AND CONTINUE TO MONITOR.
--- NOTE | 2019-06-21 21:45 | NUR ---
CALLED ON-CALL PULMONARY PHYSICIAN FOR CONSULT. SPOKE WITH DR. SEBASTIAN. ASKED PT TO COUGH. COUGH PRODUCED SPUTUM WITH SPOTS AND STREAKS OF BRIGHT RED BLOOD. DESCRIBED SPUTUM TO DR. SEBASTIAN. INFORMED DR. SEBASTIAN ( TOLD BY PATIENT) CHEST PAIN STARTED 1-2 WEEKS AGO THEN DURING NIGHT INTO HEALTHCARE ADMINISTRATOR BEGAN COUGHING UP COPIOUS AMOUNTS OF BRIGHT RED BLOOD NON-STOP THAT THROUGHOUT THE DAY BECAME LESS BLOODY UNTIL IT WAS MORE LIKE SPUTUM WITH BLOOD IN IT. READ RESULTS OF CTA, REPORTED LAB VALUES AND HISTORY GIVEN BY PATIENT ABOUT FREQUENT PE'S, LAST BEING ABOUT A YEAR AGO. PT HAS BEEN TAKING ELIQUIS FOR 3-4 YEARS STARTING OUT WITH 5 MG BID THAT WAS INCREASED TO 10 MG BID UNTIL PE'S STOPPED. PATIENT'S CURRENT DOSE OF ELIQUIS IS 10 MG BID. REPORTED CURRENT MEDICATIONS. ELIQUIS TO BE HELD TONIGHT AND PT WILL BE NPO AFTER MIDNIGHT PER DR. SEBASTIAN WHO WILL SEE HIM IN THE MORNING FOR EVALUATION.
[2019-06-22 00:29] VITALS: BP 116/68
[2019-06-22 05:30] VITALS: BP 110/67
[2019-06-22 06:35] LABS: BASOPHILS 0.6 % (0-2); EOSINOPHILS 3.2 % (0-7); HEMATOCRIT 42.5 % (42.0-54.0); HEMOGLOBIN 14.2 g/dL (13.5-17.5); IMMATURE GRANULOCYTES 0.3 % (0-5); LYMPHOCYTES 29.5 % (15-50); MCH 30.7 pg (26.0-34.0); MCHC 33.4 g/dL (31.0-37.0); MEAN PLATELET VOLUME 8.9 fL (7.4-10.4); MONOCYTES 8.4 % (2-11); PLATELET COUNT 205 10x3/uL (130-400); RBC 4.62 10x6/uL (4.20-6.10); RDW 13.7 % (11.5-14.5)
[2019-06-22 06:38] LABS: CALC OSMOLALITY 279 mosm/kg (275-300); CALCIUM 8.5 mg/dL (8.5-10.1); CARBON DIOXIDE 26.7 mmol/L (21.0-32.0); CHLORIDE - SERUM 106 mmol/L (98-107); CREATININE - SERUM 0.7 mg/dL (0.6-1.3); GLUCOSE 88 mg/dL (74-106); POTASSIUM - SERUM 4.3 mmol/L (3.5-5.1); SODIUM 142 mmol/L (136-145); eGFR NON AFRICAN AMERICAN > 90 mL/min (90-120)
[2019-06-22 06:39] LABS: UREA NITROGEN 8 mg/dL (7-18); WBC 6.8 10x3/uL (4.8-10.8)
--- NOTE | 2019-06-22 09:10 | NUR ---
REPORT GIVEN TO ANUSHA ALFRED LPN. O2 ON AT 3 LITERS SATING 95 PERCENT. WILL CONTINUE TO MONITOR.
--- NOTE | 2019-06-22 09:30 | NUR ---
O2 SATS 97 PERCENT ON ROOM AIR WHILE AWAKE. WHEN PATIENT FALLS ASLEEP PT SATS DROP TO 90 PERCENT.
--- NOTE | 2019-06-22 09:45 | NUR ---
PT AWAKE AND ALERT STATES I DONT REMEMBER ANYTHING. O2 SATS 98 PERCENT ON ROOM AIR. INSTRUCT TO ANUSHA THE NURSE LEAVE O2 ON AT 2 LITERS BECAUSE WHEN HE SLEEPS HIS O2 SAT WILL DROP TO 91 PERCENT. PT DOES WAKE UP WHEN VERBALLY SPOKEN TO.
--- NOTE | 2019-06-22 10:14 | NUR ---
PT WAS TO HAVE BRONCH THIS MORNING BUT WAS UNABLE TO COMPLETE PROCEDURE, PT IS LYING IN BED AND SEDATED STILL, SPOKE TO BELLE JONES WHO STATES PT SHOULD BE NPO FOR 2 HOURS DUE TO NUMBNESS IN THROAT AND WILL BE ABLE TO GO BACK TO NORMAL INTAKE AFTERWARDS. PT IS LYINF IN BED WITH EYES CLOSED, NO SIGNS OF DISTRESS, EVEN RISE AND FALL OF CHEST. CONTINUE WITH PLAN OF CARE
[2019-06-22 12:20] VITALS: BP 97/64
--- NOTE | 2019-06-22 13:17 | NUR ---
I have reviewed this patient and I concur with the Shift Assessment completed by the Licensed Practical Nurse today this shift.
--- NOTE | 2019-06-22 15:38 | NUR ---
PT STATES PAIN IS STILL AT A 6, ADMINISTERED PRN PAIN MEDICATION ABOUT 40 MINS AGO ADVISED PT TO ALLOW MORE TIME FOR PAIN MEDICATIONS TO WORK. CONTINUE WITH PLAN OF CARE
--- NOTE | 2019-06-22 16:00 | NUR ---
PT SITTING UP IN BED WITH SOUSE IN BED WITH HIM, STATES THROAT IS SORE FROM ATTEMPTED BRONCH THIS MORNING STILL, PAIN IS AT A 6 ADVISED PAIN MEDICINE CAN BE GIVEN AT 7, BED IN LOWEST POSITION, CL IN REACH CONTINUE WITH PLAN OF CARE
[2019-06-22 16:12] VITALS: BP 91/56
[2019-06-22 19:30] VITALS: BP 108/58
--- NOTE | 2019-06-22 21:15 | NUR ---
PT C/O LEFT CHEST PAIN 01/01. GAVE PERCOCET-10 1 TAB PO AND SCHEDULED MEDS. ASSESSMENT COMPLETE PER FLOWSHEET. BROUGHT CUP OF COFFE AND REMINDED HIM TO BE NPO AFTER MIDNIGHT FOR PROCEDURE IN AM. NO OTHER NEEDS. WILL REASSESS AND CONTINUE TO MONITOR.
[2019-06-23 00:30] VITALS: BP 100/66
[2019-06-23 05:31] VITALS: BP 108/70
[2019-06-23 06:52] LABS: BASOPHILS 0.5 % (0-2); EOSINOPHILS 2.3 % (0-7); HEMATOCRIT 41.3 % (42.0-54.0); HEMOGLOBIN 13.7 g/dL (13.5-17.5); IMMATURE GRANULOCYTES 0.2 % (0-5); LYMPHOCYTES 21.5 % (15-50); MCH 30.8 pg (26.0-34.0); MCHC 33.2 g/dL (31.0-37.0); MCV 92.8 fL (80.0-100.0); MEAN PLATELET VOLUME 8.8 fL (7.4-10.4); MONOCYTES 6.9 % (2-11); NEUTROPHILS 68.6 % (40-80); PLATELET COUNT 190 10x3/uL (130-400); RBC 4.45 10x6/uL (4.20-6.10); RDW 13.8 % (11.5-14.5); WBC 6.2 10x3/uL (4.8-10.8)
[2019-06-23 07:08] LABS: CALC OSMOLALITY 280 mosm/kg (275-300); CALCIUM 8.3 mg/dL (8.5-10.1); CHLORIDE - SERUM 107 mmol/L (98-107); CREATININE - SERUM 0.7 mg/dL (0.6-1.3); GLUCOSE 90 mg/dL (74-106); MAGNESIUM - SERUM 1.9 mg/dL (1.8-2.4); POTASSIUM - SERUM 4.3 mmol/L (3.5-5.1); SODIUM 142 mmol/L (136-145); UREA NITROGEN 8 mg/dL (7-18); eGFR NON AFRICAN AMERICAN > 90 mL/min (90-120)
[2019-06-23 08:14] VITALS: BP 98/65
--- NOTE | 2019-06-23 12:29 | NUR ---
PT REQUESTED PRN PAIN MEDICATION STATED PAIN IS AT A 7. ADMINISTERED PRN MEDS, NMO OTHER NEEDS VOICED CONTINUE WITH PLAN OF CARE
--- NOTE | 2019-06-23 12:49 | NUR ---
PT CALLED ME INTO HIS ROOM AND HAD SPIT UP JERALD SIZE PHELGHM WITH MUCOUS AND BLOOD TINGED PARTICLES, PT STATED HE HAS BEEN DOING THAT PRIOR TO ADMIT BUT NOT OFTEN. ADVISED PT THAT I WILL DOCUMENT FINDINGS. NO TOHER NEEDS VOICED, CONTINUE WITH PLAN OF CARE
[2019-06-23 12:51] VITALS: BP 100/75
[2019-06-23 16:35] VITALS: BP 105/65
[2019-06-23 19:30] VITALS: BP 116/70
[2019-06-24 00:30] VITALS: BP 121/67
--- NOTE | 2019-06-24 00:44 | NUR ---
REC'D CHGE OF SHIFT WALKING ROUNDS IN BED NUMEROUS VISITORS AT BEDSIDE AND IN BED WITH PATIENT.VOICES NO NEW COMPLAINTS WILL CONTINUE TO MONITOR FOR ANY CHGES IN ADMIT STATUS AND FOLLOW CURRENT PLAN OF CARE.
[2019-06-24 05:25] VITALS: BP 118/70
[2019-06-24 05:35] LABS: BASOPHILS 0.5 % (0-2); EOSINOPHILS 4.5 % (0-7); HEMATOCRIT 42.8 % (42.0-54.0); HEMOGLOBIN 14.2 g/dL (13.5-17.5); IMMATURE GRANULOCYTES 0.2 % (0-5); LYMPHOCYTES 35.6 % (15-50); MCH 30.9 pg (26.0-34.0); MCHC 33.2 g/dL (31.0-37.0); MCV 93.2 fL (80.0-100.0); MEAN PLATELET VOLUME 8.8 fL (7.4-10.4); MONOCYTES 7.4 % (2-11); NEUTROPHILS 51.8 % (40-80); PLATELET COUNT 199 10x3/uL (130-400); RBC 4.59 10x6/uL (4.20-6.10); RDW 13.7 % (11.5-14.5)
[2019-06-24 05:37] LABS: CALC OSMOLALITY 277 mosm/kg (275-300); CALCIUM 8.2 mg/dL (8.5-10.1); CARBON DIOXIDE 25.2 mmol/L (21.0-32.0); CHLORIDE - SERUM 107 mmol/L (98-107); CREATININE - SERUM 0.7 mg/dL (0.6-1.3); GLUCOSE 86 mg/dL (74-106); MAGNESIUM - SERUM 2.1 mg/dL (1.8-2.4); POTASSIUM - SERUM 3.9 mmol/L (3.5-5.1); SODIUM 141 mmol/L (136-145); UREA NITROGEN 8 mg/dL (7-18); eGFR NON AFRICAN AMERICAN > 90 mL/min (90-120)
--- NOTE | 2019-06-24 07:17 | NUR ---
I have reviewed this patient and I concur with the Shift Assessment completed by the Licensed Practical Nurse today this shift.
[2019-06-24 08:43] VITALS: BP 112/75
[2019-06-24] MEDS ORDERED: LEVOFLOXACIN500 MG PO (10:51)
[2019-06-24 12:43] VITALS: BP 126/75
--- NOTE | 2019-06-24 13:37 | NUR ---
DISCHARGE INSTRUCTIONS PER DR BLUE 500MG LEVAQUIN DAILY X 6 DAYS MORE. HOLD ELIQUIS X 2 DAYS. IF NO BLEEDING RESTART ELIQUIS AT 5MG BID X 1 WEEK. IF NO BLEEDING MAY INCREASE ELIQUIS TO 10MG ONCE AND 5 MG ONCE A DAY X 1 WEEK. IF NO BLEEDING CONTINUES MAY INCREASE ELIQUIS DOSE TO 10MG BID. IF BLEEDING STARTS HOLD ELIQUIS AND NOTIFY PHYSICIAN. WILL RELAY INFORMATION TO PT DUREING DISCHARGE INSTRUCTIONS.
--- NOTE | 2019-06-24 13:43 | NUR ---
ALL DISCHARGE INSTRUCTIONS COVERED WITH PT AND PT FAMILY. PT DENIES FURTHER QUESTIONS/CONCERNS/NEEDS AT THIS TIME. ALL DISCHARGE PAPERS SIGNED. PIV TO RIGHT FA REMOVED WITH CATHETER TIP INTACT. DRESSING APPLIED. ALL SIGNED PAPERS PLACED IN PT CHART. PT AMBULATES WITHOUT DIFFICULTY OUT OF ROOM AND DENIES NEEDS FOR WHEELCHAIR ASSISTANCE.
--- NOTE | 2019-06-27 16:53 | MORECARE ---
CASE MANAGEMENT DISCHARGE SUMMARY PATIENT: CHIKI MARTINI UNIT: [id number] ADM DATE: 06/21/19 AGE: 44 : 75 SEX: M ROOM/BED: D.2238 AUTHOR: SUMIT,DOC PHYSICIAN: REFERRING PHYSICIAN: JEF ESTES MD DATE OF SERVICE: 06/27/19 Discharge Plan Patient Name: CHIKI MARTINI Facility: [facility]:[place] : 1975 Planned Disposition: Anticipated Discharge Date: Discharge Date: 06/24/2019 Expected LOS: 0 Initial Reviewer: [email or web address] Initial Review Date: 06/27/2019 Generated: 06/27/19 5:53 pm Comments DCP- Discharge Planning Updated by [email or web address]: Katie Dickinson on 06/24/19 10:[address] Patient Name: CHIKI MARTINI Encounter No: [id number] : 1975 Primary Insurance: MEDICARE A & B Anticipated DC Date: Planned Disposition: External Planned Provider: : DCP follow-up note: Patient and family in agreement with discharge plan. imm served and explained. Family at bedside to drive him home. Case management will follow and assist as needed. Katie Dickinson DCP- Discharge Planning Updated by [email or web address]: Lexie Mckeon on 06/21/19 4:[address] CM met with patient to discuss initial discharge planning. Patient is in agreement to proceed with assessment with his mother present. Verified patient's address and telephone number. Patient is alert/oriented. Stairs/steps: 8/7 w/rails. PCP: Dr. Soto. Pharmacy: [facility]. Patient states they have been able to obtain all of their prescribed medications. Patient lives alone. HHS: No. DME: No. Patient gives permission to speak with family members/care givers. Emergency contact: Chiqui Rueda (mother) [phone]. Patient is Independent with ADL's, medication management. CM discussed the availability of HH, Rehab, DME services. Patient denies the need for additional services at this time and feels safe returning to previous environment. Patient denies being hospitalized within the past 30 days. Patient denies the use of community resources [employer]. Transportation at time of discharge: Chiqui Rueda. CM will assist with DC needs as needed. Coverage Notice Reviewer: [email or web address] - Katie Dickinson Notice Issued Date-Time: 06/24/2019 11:20 Notice Type: IM Discharge Notice Notice Delivered To: Patient Relationship to Patient: Selling Specialist Name: Delivery Method: HAND - Hand Delivered Olive Days: Prior Verbal Notification: Recipient Understood Notice: Yes Recipient Signature: Yes Med Rec Note Co-signed by Attending: Coverage Notice Comment: Patient Name: CHIKI MARTINI Page [id number] at 1653 All edits/amendments must be made on the electronic document DICTATION DATE: 06/27/191652 UTILIZATION MANAGEMENT MANAGER: BRANDAN 06/27/191652 RPT#: [id number] DC DATE:06/24/19 STATUS: DIS IN [facility] [address] [place] [address] END OF REPORT
== END 2019-06-24 13:45 | disposition home or self-care (01) | DRG 191 ==
LOC: D.ER 13:34 → D.MS 16:06
PROVIDERS: Emergency Medicine; ADMIT Internal Medicine Nephrology; ATTEND Internal Medicine Nephrology
DX: J47.9 Bronchiectasis, uncomplicated (principal); F17.203 Nicotine dependence unspecified, with withdrawal; I82.509 Chronic embolism and thrombosis of unspecified deep veins of unspecified lower extremity; R91.8 Other nonspecific abnormal finding of lung field; Z86.711 Personal history of pulmonary embolism; Z79.01 Long term (current) use of anticoagulants; F32.9 Major depressive disorder, single episode, unspecified; J43.9 Emphysema, unspecified; Z95.828 Presence of other vascular implants and grafts; F12.90 Cannabis use, unspecified, uncomplicated

== ENCOUNTER → 2020-01-23 07:31 | Outpatient (CLI) | payer MEDICARE ==
[2019-06-21 18:06] VITALS: BMI 25.8
[~2020-01-23 07:31] MED LIST changes: +LEVOFLOXACIN500 MG PO
== END | disposition home or self-care (01) ==
LOC: D.CT 07:31
PROVIDERS: ATTEND Internal Medicine Medical Oncology
DX: D68.59 Other primary thrombophilia (principal); R04.2 Hemoptysis; R60.0 Localized edema; R91.1 Solitary pulmonary nodule; R91.8 Other nonspecific abnormal finding of lung field; R10.9 Unspecified abdominal pain; Z86.711 Personal history of pulmonary embolism

== ENCOUNTER 2020-03-24 15:21 | Emergency (ER) | payer MEDICARE ==
[~2020-03-24] VITALS: Ht 180.3 cm; Wt 84.1 kg
[2020-03-24 15:38] VITALS: Ht 180.3 cm; Wt 84.1 kg
[2020-03-24 16:43] LABS: BASOPHILS 0.4 % (0-2); EOSINOPHILS 0.7 % (0-7); HEMATOCRIT 42.8 % (42.0-54.0); HEMOGLOBIN 14.8 g/dL (13.5-17.5); IMMATURE GRANULOCYTES 0.2 % (0-5); LYMPHOCYTES 12.8 % (15-50); MCH 30.9 pg (26.0-34.0); MCHC 34.6 g/dL (31.0-37.0); MCV 89.4 fL (80.0-100.0); MEAN PLATELET VOLUME 8.5 fL (7.4-10.4); MONOCYTES 6.6 % (2-11); NEUTROPHILS 79.3 % (40-80); PLATELET COUNT 172 10x3/uL (130-400); RBC 4.79 10x6/uL (4.20-6.10); RDW 12.8 % (11.5-14.5); WBC 10.8 10x3/uL (4.8-10.8)
[2020-03-24 16:59] LABS: INR 1.08 (0.85-1.17)
[2020-03-24 17:00] LABS: D-DIMER-QUANTITATIVE < 0.27 ug/mLFEU (0.20-0.54)
[2020-03-24 17:37] LABS: CALC OSMOLALITY 266 mosm/kg (275-300); CALCIUM 8.9 mg/dL (8.5-10.1); CARBON DIOXIDE 25.2 mmol/L (21.0-32.0); CHLORIDE - SERUM 100 mmol/L (98-107); CREATININE - SERUM 1.1 mg/dL (0.6-1.3); GLUCOSE 125 mg/dL (74-106); POTASSIUM - SERUM 3.9 mmol/L (3.5-5.1); SODIUM 134 mmol/L (136-145); UREA NITROGEN 8 mg/dL (7-18); eGFR NON AFRICAN AMERICAN 77 mL/min (90-120)
[2020-03-24 17:55] LABS: ALKALINE PHOSPHATASE 52 U/L (30-120); ALT (SGPT) 35 U/L (10-68); BILIRUBIN - TOTAL 0.46 mg/dL (0.2-1.3); CKMB 0.5 U/L (0.0-3.6); CREATINE KINASE 67 UL (21-232); MAGNESIUM - SERUM 1.8 mg/dL (1.8-2.4); PROTEIN - SERUM 6.6 g/dL (6.4-8.2); TROPONIN-I < 0.017 ng/mL (0.000-0.060)
[2020-03-24] MEDS ORDERED: ALBUTEROL SULF8.5 GM INH (19:09)
[2020-03-24 19:33] VITALS: BP 108/78
== END 2020-03-24 19:33 | disposition home or self-care (01) ==
LOC: D.ER 15:21
PROVIDERS: Family Medicine
DX: J44.1 Chronic obstructive pulmonary disease with (acute) exacerbation (principal); R06.02 Shortness of breath; R11.0 Nausea; R61 Generalized hyperhidrosis; Z72.0 Tobacco use